=== PATIENT | female | born 1970 | race African-American/Black ===

== ENCOUNTER 2017-10-24 18:05 | Inpatient (IN) | payer MEDICAID ==
[~2017-10-24] VITALS: Ht 170.2 cm; Wt 87.9 kg
--- NOTE | ~2017-10-24 | MORECARE ---
CASE MANAGEMENT DISCHARGE SUMMARY PATIENT: MARIANNE ORTEGA UNIT: [id number] ADM DATE: 10/24/17 AGE: 47 : 68 SEX: F ROOM/BED: D.3813 AUTHOR: CASE, SUPERVISOR PUBLIC MESSAGE SERVICE PHYSICIAN: REFERRING PHYSICIAN: GENE XAVIER MD DATE OF SERVICE: 10/24/17 Discharge Plan Patient Name: MARIANNE ORTEGA Facility: [facility]:[place] : 1970 Planned Disposition: Nursing Facility AJ Cert Anticipated Discharge Date: 11/07/17 Discharge Date: 11/07/2017 Expected LOS: 14 Initial Reviewer: [email or web address] Initial Review Date: 11/09/2017 Generated: 11/09/17 10:47 am Comments DCP- Discharge Planning Updated by [email or web address]: Sherrill Cabrera on 11/07/17 2:[address] DC PLAN: Patient to return to [facility] under her Medicaid. Ambulance to transport. DC order received from Dr. Xavier. CM called Dr. De La Vega who come to evaluate the patient and stated patient was stable for discharge today back to senior living. CM called [facility] @ [phone], spoke to Tierney who was not happy she wasn't notified. Informed Tierney that I was notified when the DC order was placed and contacted her as soon as Dr. De La Vega examined patient and agreed to the dc as well. JUDITH asked her who report needed to be called to and she said "That would be me" informed her that Axel would be calling her report. Notified Axel of the number and nurse name report needed to be called too. CM spoke to [facility] product safety coordinator who stated she would work on patient's discharge next. Patient is bedbound and will require ambulance transport to return to the facility. CM will continue to follow and will assist as needed with dc plans/needs. Sherrill Cabrera RN, [facility] Patient Name: MARIANNE ORTEGA Page [id number] All edits/amendments must be made on the electronic document DICTATION DATE: 11/09/17945 CLINICAL PSYCHOLOGY TEACHER: 11/09/17945 RPT#: [id number] DC DATE:11/07/17 STATUS: DIS IN [facility] [address] [place] [address] END OF REPORT
--- NOTE | ~2017-10-24 | CN ---
PATIENT NAME:MARIANNE ORTEGA MEDICAL RECORD: [id number] : 68 LOCATION:[facility] D.[id number] ADMIT DATE: 10/24/17 ACCOUNT: [id number] CONSULTING PHYSICIAN: CRYSTAL SPANGLER MD REFERRING PHYSICIAN: GENE HATFIELD MD DATE OF CONSULTATION: 10/27/2017 CONSULT REQUESTING PHYSICIAN: Axel Chew MD REASON FOR CONSULTATION: Bilateral pneumonia, leukocytosis. HISTORY OF PRESENT ILLNESS: Ms. Ortega is a 47-year-old -[place] female who is a care home resident. The patient has history of CVA and the patient is aphasic. The history was taken by talking mainly to the nursing staff and reviewing the patient's note. The patient was transferred from [facility]. She had significant leukocytosis and fever. She was also in acute renal failure. REVIEW OF THE SYSTEMS: As in history of present illness. PAST MEDICAL HISTORY: 1. History of CVA with left-sided hemiparesis. 2. Protein-calorie malnutrition. 3. Hypertension. 4. History of UTI. 5. History of microcytic anemia. PAST SURGICAL HISTORY: 1. History of hysterectomy. 2. PEG tube placement. ALLERGIES: There are no known drug allergies. MEDICATIONS: [employer] is reviewed. PERSONAL AND SOCIAL HISTORY: The patient is nonsmoker and nondrinker. FAMILY HISTORY: Noncontributory. PHYSICAL EXAMINATION: GENERAL: Now, the patient is lying comfortably in bed. She is not in acute distress. VITAL SIGNS: The blood pressure is 179/111, pulse is 115, temperature is 100, SpO2 is 93% on 2-1/2 liters nasal cannula. HEENT: Conjunctivae are pink. Sclerae are not icteric. NECK: Neck is supple. No JVD. CHEST: The chest excursion is minimal with bibasal crackles. No wheezing. HEART: Rhythm regular. Normal sound. No murmur. CENTRAL NERVOUS SYSTEM: The patient is aphasic. She has left hemiparesis. LABORATORY DATA: CBC; WBC 18.9, hemoglobin 10.1, hematocrit is 32.3, and platelet count 283. Chemistry; sodium is 150, potassium 3.3, BUN is 26, creatinine is 1.2. IMPRESSION: CONSULT REPORT [id number] MARIANNE ORTEGA 1. Acute hypoxic respiratory event. 2. Bilateral pneumonia, possible aspiration pneumonia. 3. Leukocytosis secondary to pneumonia. 4. Nausea and vomiting. No obstruction on the KUB. 5. Elevation of the right hemidiaphragm, possible atelectasis of the right lower lobe. 6. Status post CVA. 7. Acute kidney injury, possible secondary to dehydration. RECOMMENDATION: 1. Continue Levaquin. We will start on Zosyn to cover for anaerobe, gram-negative lory. 2. Followup on the blood culture. 3. Check CT scan of the chest. 4. Followup labs and chest radiograph. Dr. Chew, thank you for involving me in the care of Ms. Ortega. TRANSINT:[id number] Voice Confirmation ID: [id number] DOCUMENT ID: [id number] CRYSTAL SPANGLER MD at 1110 CC: [id number] DICTATION DATE: 10/27/17 1538 [place]: 10/27/17 1556 ADM IN [place] [id number] [place] [address]
[~2017-10-24 18:05] MED LIST: CATAPRES TTS-20.2 MG TD
[2017-10-24] MEDS ORDERED: LIPITOR10 MG PEG (23:04)
[2017-10-24] MEDS ORDERED: CELEXA20 MG PEG (23:08)
[2017-10-24] MEDS ORDERED: ZESTRIL40 MG PO (23:09)
[2017-10-24] MEDS ORDERED: BAYER CHEWABLE81 MG PO (23:09)
[2017-10-24] MEDS ORDERED: ZESTRIL40 MG PEG (23:10)
[2017-10-24] MEDS ORDERED: LOZOL 2.5 MG T2.5 MG PEG (23:11)
[2017-10-24] MEDS ORDERED: REGLAN10 MG PEG (23:12)
[2017-10-24] MEDS ORDERED: METOPROLOL TART50 MG PEG (23:12)
[2017-10-24] MEDS ORDERED: GLUCERNA 1.5 C237 M1 PT (23:15)
[2017-10-24] MEDS ORDERED: RANITIDINE H15 MG/ML PEG (23:19)
[2017-10-24] MEDS ORDERED: PROTONIX I40 MG/VIAL IV (23:22)
[2017-10-24] MEDS ORDERED: ONDANSETRON4 MG/2 M3 IV ×2 (23:30→23:32)
[2017-10-24] MEDS ORDERED: ACETAMINOPHEN500 M1 PEG (23:31)
[2017-10-24] MEDS ORDERED: MILK OF MAGNESI30 ML PEG (23:33)
[2017-10-24] MEDS ORDERED: GAS-X125 M1 PEG (23:34)
[2017-10-24] MEDS ORDERED: COLACE50 MG/5 ML PEG (23:36)
[2017-10-24] MEDS ORDERED: VANCOMYCIN 1 GM/1 G1 IV (23:44)
[2017-10-25 00:29] VITALS: BP 148/79; BMI 29.5
[2017-10-25 02:22] LABS: HEMATOCRIT 30.5 % (36.0-48.0); HEMOGLOBIN 9.8 g/dL (12-16); LYMPHOCYTES 4.5 % (15-50); MCH 27.2 pg (26.0-34.0); MCHC 32.1 g/dL (31.0-37.0); MCV 84.7 fL (80.0-100.0); MEAN PLATELET VOLUME 10.2 fL (7.4-10.4); NEUTROPHILS 88.3 % (40-80); PLATELET COUNT 254 10x3/uL (130-400); RDW 15.1 % (11.5-14.5); WBC 18.6 10x3/uL (4.8-10.8)
[2017-10-25 02:52] LABS: ANION GAP 19.9 mmol/L (8-16); BILIRUBIN - TOTAL 0.44 mg/dL (0.2-1.3); CALCIUM 8.5 mg/dL (8.5-10.1); CARBON DIOXIDE 21.2 mmol/L (21.0-32.0); CREATININE - SERUM 3.4 mg/dL (0.6-1.3); POTASSIUM - SERUM 4.1 mmol/L (3.5-5.1)
[2017-10-25 04:30] VITALS: BP 186/103
[2017-10-25 08:53] VITALS: BP 173/95
[2017-10-25 11:23] LABS: % SATURATION 6 % (15-55); IRON 10 ug/dl (35-150); TOTAL IRON BIND CAPACITY 150 ug/dl (260-445); UNSAT IRON BIND CAPACITY 140 ug/dl (150-375)
[2017-10-25 12:19] VITALS: BP 180/99
[2017-10-25 16:53] VITALS: BP 196/116
[2017-10-25 20:48] VITALS: BP 168/91
[2017-10-26 01:05] VITALS: BP 194/109
[2017-10-26 05:15] VITALS: BP 106/66
[2017-10-26 05:30] LABS: BASOPHILS 0.2 % (0-2); EOSINOPHILS 0 % (0-7); HEMATOCRIT 30.8 % (36.0-48.0); HEMOGLOBIN 9.6 g/dL (12-16); IMMATURE GRANULOCYTES 1.7 % (0-5); LYMPHOCYTES 8.6 % (15-50); MCH 26.6 pg (26.0-34.0); MCHC 31.2 g/dL (31.0-37.0); MCV 85.3 fL (80.0-100.0); MEAN PLATELET VOLUME 9.8 fL (7.4-10.4); MONOCYTES 10.1 % (2-11); NEUTROPHILS 79.4 % (40-80); PLATELET COUNT 259 10x3/uL (130-400); RBC 3.61 10x6/uL (4.00-5.40); RDW 15.3 % (11.5-14.5); WBC 15.2 10x3/uL (4.8-10.8)
[2017-10-26 05:50] LABS: ANION GAP 11.2 mmol/L (8-16); CALCIUM 8.7 mg/dL (8.5-10.1); CARBON DIOXIDE 26.5 mmol/L (21.0-32.0); CREATININE - SERUM 1.8 mg/dL (0.6-1.3); POTASSIUM - SERUM 3.7 mmol/L (3.5-5.1)
[2017-10-26 08:42] VITALS: BP 171/101
[2017-10-26 12:27] VITALS: BP 190/117
[2017-10-26 14:03] VITALS: Ht 170.2 cm; Wt 87.9 kg
[2017-10-26 19:52] LABS: APPEARANCE CLEAR (CLEAR); BACTERIA FEW /hpf (NONE SEEN); BILIRUBIN NEGATIVE (NEGATIVE); COLOR YELLOW (YELLOW); GLUCOSE 1000 mg/dL (NEGATIVE); KETONE SMALL mg/dL (NEGATIVE); NITRITE NEGATIVE (NEGATIVE); PROTEIN TRACE mg/dL (NEGATIVE); RED CELLS - URINE 0-5 /hpf (0-5); UROBILINOGEN NORMAL (NORMAL); WHITE CELLS - URINE OCC /hpf (0-5)
[2017-10-26 20:48] VITALS: BP 188/106
[2017-10-27 06:57] VITALS: BP 188/122
[2017-10-27 07:49] LABS: BASOPHILS 0.2 % (0-2); EOSINOPHILS 0 % (0-7); HEMATOCRIT 32.3 % (36.0-48.0); HEMOGLOBIN 10.1 g/dL (12-16); IMMATURE GRANULOCYTES 1.9 % (0-5); LYMPHOCYTES 7.3 % (15-50); MCHC 31.3 g/dL (31.0-37.0); MCV 86.4 fL (80.0-100.0); MEAN PLATELET VOLUME 9.8 fL (7.4-10.4); MONOCYTES 6.6 % (2-11); PLATELET COUNT 283 10x3/uL (130-400); RBC 3.74 10x6/uL (4.00-5.40); RDW 15.4 % (11.5-14.5); WBC 18.9 10x3/uL (4.8-10.8)
[2017-10-27 08:02] LABS: ANION GAP 15.1 mmol/L (8-16); CALCIUM 8.5 mg/dL (8.5-10.1); CARBON DIOXIDE 25.2 mmol/L (21.0-32.0); POTASSIUM - SERUM 3.3 mmol/L (3.5-5.1)
[2017-10-27 08:03] LABS: CREATININE - SERUM 1.2 mg/dL (0.6-1.3)
[2017-10-27 09:18] VITALS: BP 167/113
[2017-10-27 09:19] LABS: FOLATE (FOLIC ACID) - SERUM >20.0 ng/mL (>3.0)
[2017-10-27 12:39] VITALS: BP 179/111
[2017-10-27 21:08] VITALS: BP 154/108
[2017-10-28 01:40] VITALS: BP 156/98
[2017-10-28 05:40] VITALS: BP 155/89
[2017-10-28 07:08] LABS: BASOPHILS 0.2 % (0-2); EOSINOPHILS 0 % (0-7); HEMATOCRIT 32.5 % (36.0-48.0); HEMOGLOBIN 10.1 g/dL (12-16); IMMATURE GRANULOCYTES 2.6 % (0-5); LYMPHOCYTES 11.4 % (15-50); MCH 26.7 pg (26.0-34.0); MCHC 31.1 g/dL (31.0-37.0); MEAN PLATELET VOLUME 9.6 fL (7.4-10.4); MONOCYTES 10.6 % (2-11); NEUTROPHILS 75.2 % (40-80); PLATELET COUNT 282 10x3/uL (130-400); RBC 3.78 10x6/uL (4.00-5.40); RDW 15.5 % (11.5-14.5); WBC 18.1 10x3/uL (4.8-10.8)
[2017-10-28 07:41] LABS: CALCIUM 8.5 mg/dL (8.5-10.1); CARBON DIOXIDE 27.1 mmol/L (21.0-32.0); CREATININE - SERUM 1.5 mg/dL (0.6-1.3); POTASSIUM - SERUM 3.1 mmol/L (3.5-5.1)
[2017-10-28 12:00] VITALS: BP 151/97
[2017-10-28 17:35] VITALS: BP 137/90
[2017-10-28 20:36] VITALS: BP 147/93
[2017-10-29 00:51] VITALS: BP 195/109
[2017-10-29 04:59] LABS: HEMOGLOBIN 10.6 g/dL (12-16); MCH 26.8 pg (26.0-34.0); MCHC 31.2 g/dL (31.0-37.0); MCV 86.1 fL (80.0-100.0); MEAN PLATELET VOLUME 9.8 fL (7.4-10.4); PLATELET COUNT 274 10x3/uL (130-400); RBC 3.95 10x6/uL (4.00-5.40); RDW 15.6 % (11.5-14.5); WBC 22.8 10x3/uL (4.8-10.8)
[2017-10-29 05:07] LABS: CARBON DIOXIDE 24.3 mmol/L (21.0-32.0); CREATININE - SERUM 1.2 mg/dL (0.6-1.3); POTASSIUM - SERUM 3.3 mmol/L (3.5-5.1)
[2017-10-29 05:26] LABS: LYMPHOCYTES 10 % (15-50); MONOCYTES 6 % (2-11); NEUTROPHILS 82 % (40-80); PLATELET ESTIMATE NORMAL
[2017-10-29 06:20] VITALS: BP 183/107
[2017-10-29 08:29] VITALS: BP 151/94
[2017-10-29 20:08] VITALS: BP 164/97
[2017-10-29 23:15] VITALS: BP 164/93
[2017-10-30 04:33] VITALS: BP 175/95
[2017-10-30 08:33] LABS: BASOPHILS 0.1 % (0-2); EOSINOPHILS 0 % (0-7); HEMATOCRIT 27.1 % (36.0-48.0); HEMOGLOBIN 8.3 g/dL (12-16); IMMATURE GRANULOCYTES 1.3 % (0-5); LYMPHOCYTES 8.6 % (15-50); MCH 26.6 pg (26.0-34.0); MCHC 30.6 g/dL (31.0-37.0); MCV 86.9 fL (80.0-100.0); MEAN PLATELET VOLUME 9.7 fL (7.4-10.4); MONOCYTES 6.2 % (2-11); NEUTROPHILS 83.8 % (40-80); PLATELET COUNT 236 10x3/uL (130-400); RBC 3.12 10x6/uL (4.00-5.40); RDW 15.9 % (11.5-14.5); WBC 20.8 10x3/uL (4.8-10.8)
[2017-10-30 08:38] LABS: CALCIUM 7.8 mg/dL (8.5-10.1); CARBON DIOXIDE 27.4 mmol/L (21.0-32.0); CREATININE - SERUM 1.1 mg/dL (0.6-1.3); POTASSIUM - SERUM 3.4 mmol/L (3.5-5.1)
[2017-10-30 19:44] VITALS: BP 164/83
[2017-10-31] VITALS: BP 171/95
[2017-10-31 04:00] VITALS: BP 173/89
[2017-10-31 08:00] VITALS: BP 155/85
[2017-10-31 08:57] VITALS: BP 163/85
[2017-10-31 12:32] VITALS: BP 168/87
[2017-10-31 13:52] LABS: BASOPHILS 0.1 % (0-2); EOSINOPHILS 0 % (0-7); HEMATOCRIT 26.4 % (36.0-48.0); HEMOGLOBIN 8.2 g/dL (12-16); IMMATURE GRANULOCYTES 0.9 % (0-5); LYMPHOCYTES 9.2 % (15-50); MCH 26.8 pg (26.0-34.0); MCHC 31.1 g/dL (31.0-37.0); MCV 86.3 fL (80.0-100.0); MEAN PLATELET VOLUME 9.8 fL (7.4-10.4); MONOCYTES 4.8 % (2-11); PLATELET COUNT 242 10x3/uL (130-400); RBC 3.06 10x6/uL (4.00-5.40); RDW 15.7 % (11.5-14.5); WBC 18.6 10x3/uL (4.8-10.8)
[2017-10-31 14:12] LABS: ALBUMIN 1.3 g/dL (3.4-5.0); ANION GAP 6.6 mmol/L (8-16); BILIRUBIN - TOTAL 0.25 mg/dL (0.2-1.3); CALCIUM 7.9 mg/dL (8.5-10.1); CARBON DIOXIDE 28.7 mmol/L (21.0-32.0); POTASSIUM - SERUM 3.3 mmol/L (3.5-5.1); PROTEIN - SERUM 6.3 g/dL (6.4-8.2)
[2017-10-31 16:09] VITALS: BP 172/94
[2017-11-01 04:00] VITALS: BP 162/101
[2017-11-01 09:24] VITALS: BP 168/96
[2017-11-01 12:40] VITALS: BP 155/81
[2017-11-01 16:39] VITALS: BP 168/96
[2017-11-01 20:00] VITALS: BP 179/103
[2017-11-02] VITALS: BP 182/103
[2017-11-02 04:00] VITALS: BP 185/99
[2017-11-02 05:27] LABS: BASOPHILS 0 % (0-2); EOSINOPHILS 0 % (0-7); HEMATOCRIT 25.7 % (36.0-48.0); HEMOGLOBIN 7.9 g/dL (12-16); LYMPHOCYTES 8.4 % (15-50); MCH 26.1 pg (26.0-34.0); MCHC 30.7 g/dL (31.0-37.0); MCV 84.8 fL (80.0-100.0); MEAN PLATELET VOLUME 9.4 fL (7.4-10.4); MONOCYTES 7.7 % (2-11); NEUTROPHILS 82.9 % (40-80); PLATELET COUNT 258 10x3/uL (130-400); RBC 3.03 10x6/uL (4.00-5.40); RDW 15.9 % (11.5-14.5); WBC 17.2 10x3/uL (4.8-10.8)
[2017-11-02 05:38] LABS: CARBON DIOXIDE 29.7 mmol/L (21.0-32.0); CREATININE - SERUM 0.9 mg/dL (0.6-1.3); POTASSIUM - SERUM 3.7 mmol/L (3.5-5.1)
[2017-11-02 08:55] VITALS: BP 166/96
[2017-11-02 12:26] VITALS: BP 145/73
[2017-11-02 17:36] VITALS: BP 152/82
[2017-11-02 20:00] VITALS: BP 150/87
[2017-11-03] VITALS: BP 158/82
[2017-11-03 04:00] VITALS: BP 168/84
[2017-11-03 06:00] LABS: BASOPHILS 0.1 % (0-2); EOSINOPHILS 0 % (0-7); HEMATOCRIT 24.7 % (36.0-48.0); IMMATURE GRANULOCYTES 1.2 % (0-5); LYMPHOCYTES 12.8 % (15-50); MCH 27.2 pg (26.0-34.0); MCHC 32.4 g/dL (31.0-37.0); MEAN PLATELET VOLUME 9.8 fL (7.4-10.4); MONOCYTES 8.7 % (2-11); NEUTROPHILS 77.2 % (40-80); PLATELET COUNT 260 10x3/uL (130-400); RBC 2.94 10x6/uL (4.00-5.40); RDW 15.6 % (11.5-14.5); WBC 14.1 10x3/uL (4.8-10.8)
[2017-11-03 06:27] LABS: CALC OSMOLALITY 283 mosm/kg (275-300); CALCIUM 8.1 mg/dL (8.5-10.1); CARBON DIOXIDE 28.3 mmol/L (21.0-32.0); CHLORIDE - SERUM 105 mmol/L (98-107); CREATININE - SERUM 0.8 mg/dL (0.6-1.3); GLUCOSE 211 mg/dL (74-106); POTASSIUM - SERUM 3.9 mmol/L (3.5-5.1); SODIUM 138 mmol/L (136-145); UREA NITROGEN 18 mg/dL (7-18); eGFR NON AFRICAN AMERICAN 81 mL/min (90-120)
[2017-11-03 08:29] VITALS: BP 148/93
[2017-11-03 12:04] VITALS: BP 143/83
[2017-11-03 15:30] VITALS: BP 168/96
[2017-11-03 20:00] VITALS: BP 166/91
[2017-11-04] VITALS (7 sets, daily range): BP systolic 159–188; BP diastolic 62–110
[2017-11-04 05:44] LABS: BASOPHILS 0.1 % (0-2); EOSINOPHILS 0.1 % (0-7); HEMATOCRIT 24.5 % (36.0-48.0); HEMOGLOBIN 7.7 g/dL (12-16); IMMATURE GRANULOCYTES 1.4 % (0-5); LYMPHOCYTES 13.6 % (15-50); MCH 26.2 pg (26.0-34.0); MCHC 31.4 g/dL (31.0-37.0); MCV 83.3 fL (80.0-100.0); MEAN PLATELET VOLUME 9.3 fL (7.4-10.4); MONOCYTES 8.6 % (2-11); NEUTROPHILS 76.2 % (40-80); PLATELET COUNT 282 10x3/uL (130-400); RBC 2.94 10x6/uL (4.00-5.40); RDW 15.4 % (11.5-14.5); WBC 13.1 10x3/uL (4.8-10.8)
[2017-11-04 05:55] LABS: CALC OSMOLALITY 282 mosm/kg (275-300); CALCIUM 7.8 mg/dL (8.5-10.1); CARBON DIOXIDE 30.5 mmol/L (21.0-32.0); CHLORIDE - SERUM 103 mmol/L (98-107); CREATININE - SERUM 0.7 mg/dL (0.6-1.3); POTASSIUM - SERUM 4.2 mmol/L (3.5-5.1); SODIUM 136 mmol/L (136-145); UREA NITROGEN 17 mg/dL (7-18); eGFR NON AFRICAN AMERICAN > 90 mL/min (90-120)
[2017-11-04 05:57] LABS: GLUCOSE 260 mg/dL (74-106)
[2017-11-05 05:49] VITALS: BP 169/92
[2017-11-05 06:17] LABS: BASOPHILS 0.1 % (0-2); EOSINOPHILS 0 % (0-7); HEMATOCRIT 26.8 % (36.0-48.0); HEMOGLOBIN 8.5 g/dL (12-16); IMMATURE GRANULOCYTES 1.6 % (0-5); MCH 26.6 pg (26.0-34.0); MCHC 31.7 g/dL (31.0-37.0); MEAN PLATELET VOLUME 9.7 fL (7.4-10.4); MONOCYTES 11.2 % (2-11); NEUTROPHILS 72.1 % (40-80); PLATELET COUNT 292 10x3/uL (130-400); RBC 3.19 10x6/uL (4.00-5.40); WBC 11.6 10x3/uL (4.8-10.8)
[2017-11-05 06:32] LABS: CALC OSMOLALITY 280 mosm/kg (275-300); CALCIUM 7.9 mg/dL (8.5-10.1); CARBON DIOXIDE 31.5 mmol/L (21.0-32.0); CHLORIDE - SERUM 98 mmol/L (98-107); CREATININE - SERUM 0.7 mg/dL (0.6-1.3); GLUCOSE 232 mg/dL (74-106); POTASSIUM - SERUM 4.5 mmol/L (3.5-5.1); SODIUM 136 mmol/L (136-145); UREA NITROGEN 18 mg/dL (7-18); eGFR NON AFRICAN AMERICAN > 90 mL/min (90-120)
[2017-11-05 09:51] VITALS: BP 147/92
[2017-11-05 18:35] VITALS: BP 158/104
[2017-11-05 18:46] VITALS: BP 140/65
[2017-11-05 20:33] VITALS: BP 167/112
[2017-11-06] VITALS: BP 187/106
[2017-11-06 05:36] VITALS: BP 183/107
[2017-11-06 06:26] LABS: BASOPHILS 0.1 % (0-2); EOSINOPHILS 0 % (0-7); HEMATOCRIT 28.6 % (36.0-48.0); IMMATURE GRANULOCYTES 1.8 % (0-5); LYMPHOCYTES 16.7 % (15-50); MCH 26.2 pg (26.0-34.0); MCHC 31.5 g/dL (31.0-37.0); MCV 83.1 fL (80.0-100.0); MEAN PLATELET VOLUME 9.3 fL (7.4-10.4); NEUTROPHILS 72.4 % (40-80); PLATELET COUNT 316 10x3/uL (130-400); RBC 3.44 10x6/uL (4.00-5.40); RDW 15.1 % (11.5-14.5); WBC 9.2 10x3/uL (4.8-10.8)
[2017-11-06 06:31] LABS: CALC OSMOLALITY 279 mosm/kg (275-300); CARBON DIOXIDE 30.3 mmol/L (21.0-32.0); CHLORIDE - SERUM 100 mmol/L (98-107); CREATININE - SERUM 0.7 mg/dL (0.6-1.3); GLUCOSE 251 mg/dL (74-106); POTASSIUM - SERUM 4.5 mmol/L (3.5-5.1); SODIUM 135 mmol/L (136-145); UREA NITROGEN 18 mg/dL (7-18); eGFR NON AFRICAN AMERICAN > 90 mL/min (90-120)
[2017-11-06 08:19] VITALS: BP 162/95
[2017-11-06 11:23] VITALS: BP 168/97
[2017-11-06 16:16] VITALS: BP 181/100
[2017-11-06 20:02] VITALS: BP 210/119
[2017-11-07 00:24] VITALS: BP 210/121
[2017-11-07 06:13] VITALS: BP 181/95
[2017-11-07 06:25] LABS: BASOPHILS 0 % (0-2); EOSINOPHILS 0 % (0-7); HEMATOCRIT 28.5 % (36.0-48.0); LYMPHOCYTES 16.7 % (15-50); MCHC 31.6 g/dL (31.0-37.0); MCV 82.4 fL (80.0-100.0); MEAN PLATELET VOLUME 9.3 fL (7.4-10.4); MONOCYTES 7.1 % (2-11); NEUTROPHILS 74.2 % (40-80); PLATELET COUNT 342 10x3/uL (130-400); RBC 3.46 10x6/uL (4.00-5.40); RDW 14.9 % (11.5-14.5); WBC 9.8 10x3/uL (4.8-10.8)
[2017-11-07 08:09] VITALS: BP 171/93
[2017-11-07 12:05] VITALS: BP 146/80
[2017-11-07] MEDS ORDERED: DIFLUCAN200 MG PO (13:52)
[2017-11-07] MEDS ORDERED: NORVASC10 MG PEG (13:53)
[2017-11-07 15:01] VITALS: BP 138/76
== END 2017-11-07 20:23 | DRG 871 ==
LOC: D.MS 18:05 → D.M2 21:00
PROVIDERS: Family Medicine; Internal Medicine Nephrology; Internal Medicine Pulmonary Disease
DX: B37.7 Candidal sepsis (principal); J69.0 Pneumonitis due to inhalation of food and vomit; E43 Unspecified severe protein-calorie malnutrition; J96.01 Acute respiratory failure with hypoxia; N39.0 Urinary tract infection, site not specified; I69.354 Hemiplegia and hemiparesis following cerebral infarction affecting left non-dominant side; N17.9 Acute kidney failure, unspecified; E87.0 Hyperosmolality and hypernatremia; B49 Unspecified mycosis; I10 Essential (primary) hypertension; E11.9 Type 2 diabetes mellitus without complications; D50.9 Iron deficiency anemia, unspecified; Z68.29 Body mass index [BMI] 29.0-29.9, adult; E86.0 Dehydration